=== PATIENT | female | born 1950 | race African-American/Black ===

== ENCOUNTER 2018-06-17 09:33 | Outpatient (CLI) | payer OTHER ==
[~2018-06-17 09:33] MED LIST: AMOX500T5 PO; CIPRO500 MG PO; CLARITHROMYC500 M1 PO; DILANTIN30 MG PO; KRISTALOSE10 GM PO; LISI20TA31 PO; OMEPRAZOLE20.6 MGDR PO; PERCOCET1 TA1 PO; ZOFRAN8 MG PO
== END 2018-06-17 22:31 | disposition home or self-care (01) ==
LOC: RAD 09:33 → EDSEX 09:33 → RAD 22:31
DX: Z13.820 Encounter for screening for osteoporosis (principal); Z78.0 Asymptomatic menopausal state

== ENCOUNTER 2019-02-13 15:32 | Inpatient (IN) | payer OTHER ==
[~2019-02-13] VITALS: Ht 160 cm; Wt 82.8 kg
[2019-02-13] VITALS (9 sets, daily range): BP systolic 105–120; BP diastolic 52–86; TEMP 97.9–98.4; Ht 160 cm; Wt 82.8 kg
[2019-02-13 16:27] LABS: PLATELET COUNT 231 K/uL (152-353)
[2019-02-13 16:45] LABS: PARTIAL THROMBOPLASTIN TIME 24.5 SECONDS (24.5-33.6)
[2019-02-13 16:52] LABS: POTASSIUM 4.7 mmol/L (3.6-5.2); SODIUM 127 mmol/L (136-145)
[2019-02-14] VITALS (24 sets, daily range): BP systolic 92–131; BP diastolic 56–88; TEMP 97.9–98.6
[2019-02-14 03:24] LABS: PARTIAL THROMBOPLASTIN TIME 27.3 SECONDS (24.5-33.6)
[2019-02-14] MEDS ORDERED: LISI20TA11 PO (05:16)
[2019-02-14] MEDS ORDERED: SPIRONOLACT25 MG PO (05:17)
[2019-02-14] MEDS ORDERED: BENZONATATE200 MG PO (05:18)
[2019-02-14] MEDS ORDERED: CLOP75TA2 PO (05:18)
[2019-02-14] MEDS ORDERED: HYDROCHLOROT12.5 M1 PO (05:20)
[2019-02-14] MEDS ORDERED: CEFD300C2 PO (05:21)
[2019-02-14] MEDS ORDERED: CODEINE/GUAIFEN1 SOL PO (05:24)
[2019-02-14 08:37] LABS: PLATELET COUNT 215 K/uL (152-353)
[2019-02-14 09:19] LABS: POTASSIUM 4.5 mmol/L (3.6-5.2); SODIUM 129 mmol/L (136-145)
== END 2019-02-14 23:10 | disposition short-term general hospital (02) | DRG 208 ==
LOC: ED 15:32 → MED/SURG 18:45 → ICU 22:15 → MED/SURG 22:15 → ICU 22:15
PROVIDERS: Family Medicine; ADMIT Hospitalist
PROC: 5A1935Z Respiratory Ventilation, Less than 24 Consecutive Hours (ICD-10-PCS; principal; 2019-02-14)
PROC: 0BH17EZ Insertion of Endotracheal Airway into Trachea, Via Natural or Artificial Opening (ICD-10-PCS; 2019-02-14)
DX: J18.8 Other pneumonia, unspecified organism (principal); I26.99 Other pulmonary embolism without acute cor pulmonale; J80 Acute respiratory distress syndrome; I13.0 Hypertensive heart and chronic kidney disease with heart failure and stage 1 through stage 4 chronic kidney disease, or unspecified chronic kidney disease; I50.1 Left ventricular failure, unspecified; R01.1 Cardiac murmur, unspecified; N18.3 Chronic kidney disease, stage 3 (moderate); D64.89 Other specified anemias; R73.9 Hyperglycemia, unspecified; E78.00 Pure hypercholesterolemia, unspecified; R10.2 Pelvic and perineal pain
CPT/HCPCS: 36415; 36600; 80053; 81000; 82150; 82550; 82805; 83036; 83605; 83690; 83880; 84484; 85027; 85379; 85610; 85730; 87040; 87077; 87086; 87088; 87186; 87899; 93005; 93306; 94640; 94664; 94760; 96365; 96366; 96375; 99220; 99284; G0378; J1644; J1650; J1885; J1940; J1956; J2270; J2930; J3490

== ENCOUNTER 2020-11-15 16:53 | Outpatient (CLI) | payer OTHER ==
[~2020-11-15 16:53] MED LIST changes: +BENZONATATE200 MG PO; +CEFD300C2 PO; +CLOP75TA2 PO; +CODEINE/GUAIFEN1 SOL PO; +HYDROCHLOROT12.5 M1 PO; +LISI20TA11 PO; +SPIRONOLACT25 MG PO
[2020-11-15 17:20] LABS: PLATELET COUNT 200 K/uL (152-353)
[2020-11-15 18:16] LABS: POTASSIUM 4.3 mmol/L (3.6-5.2)
== END 2020-11-15 23:50 | disposition home or self-care (01) ==
LOC: LABW 16:53
PROVIDERS: ATTEND Family Medicine
DX: R05 Cough (principal); I50.9 Heart failure, unspecified; I11.0 Hypertensive heart disease with heart failure; E07.89 Other specified disorders of thyroid
CPT/HCPCS: 36415; 80053; 84439; 84443; 85027

== ENCOUNTER 2020-11-21 10:40 | Outpatient (CLI) | payer OTHER | END 2020-11-21 23:03 | disposition home or self-care (01) | LOC: US 10:40 | PROVIDERS: ATTEND Family Medicine | DX: E07.89 Other specified disorders of thyroid (principal); R05 Cough; Z12.31 Encounter for screening mammogram for malignant neoplasm of breast ==

== ENCOUNTER 2022-05-12 21:09 | Emergency (ER) | payer OTHER ==
[~2022-05-12] VITALS: Ht 149.9 cm; Wt 77.1 kg
[2022-05-12 22:50] LABS: POTASSIUM 3.4 mmol/L (3.6-5.2)
[2022-05-12 22:51] LABS: PLATELET COUNT 192 K/uL (152-353)
[2022-05-13 01:15] VITALS: BP 106/62; TEMP 98.9
[2022-05-13] MEDS ORDERED: ASPIRIN 8181 MG PO (15:18)
[2022-05-13] MEDS ORDERED: LIPITOR40 MG PO (15:19)
[2022-05-13] MEDS ORDERED: ELIQUIS5 MG PO (15:19)
[2022-05-13] MEDS ORDERED: DQZATE100 MG PO (15:19)
[2022-05-13] MEDS ORDERED: NEURONTIN 100M100 MG PO (15:20)
[2022-05-13] MEDS ORDERED: METO50TA63 PO (15:20)
[2022-05-13] MEDS ORDERED: OXYC10TAB PO (15:21)
[2022-05-13] MEDS ORDERED: PANTOPRAZOLE 40MG TA PO (15:21)
== END 2022-05-13 01:15 | disposition home or self-care (01) ==
LOC: ED 21:09
PROVIDERS: Emergency Medicine Emergency Medical Services
DX: N30.00 Acute cystitis without hematuria (principal); N23 Unspecified renal colic
CPT/HCPCS: 36415; 80053; 81000; 82150; 83605; 83690; 83735; 85027; 87040; 96360; 96365; 96375; 96376; 99284; J0696; J1885; J2270; J2405; J3490; Q9963

== ENCOUNTER 2022-05-13 12:11 | Inpatient (IN) | payer OTHER ==
[~2022-05-13] VITALS: Ht 149.9 cm; Wt 81.0 kg
[2022-05-13 13:00] VITALS: BP 1248/58; TEMP 98.4; BMI 35.2
[2022-05-13 13:49] LABS: PLATELET COUNT 173 K/uL (152-353)
[2022-05-13] MEDS ORDERED: ASPIRIN 8181 MG PO (15:18)
[2022-05-13] MEDS ORDERED: DQZATE100 MG PO (15:19)
[2022-05-13] MEDS ORDERED: ELIQUIS5 MG PO (15:19)
[2022-05-13] MEDS ORDERED: LIPITOR40 MG PO (15:19)
[2022-05-13] MEDS ORDERED: NEURONTIN 100M100 MG PO (15:20)
[2022-05-13] MEDS ORDERED: METO50TA63 PO (15:20)
[2022-05-13] MEDS ORDERED: OXYC10TAB PO (15:21)
[2022-05-13] MEDS ORDERED: PANTOPRAZOLE 40MG TA PO (15:21)
[2022-05-13 16:00] VITALS: BP 116/60; TEMP 98.5
[2022-05-13 20:00] VITALS: BP 114/55; TEMP 98.6
[2022-05-14] VITALS (7 sets, daily range): BP systolic 108–152; BP diastolic 51–75; TEMP 97.8–99.3
[2022-05-14 10:02] LABS: PLATELET COUNT 146 K/uL (152-353)
[2022-05-14 10:14] LABS: POTASSIUM 3.5 mmol/L (3.6-5.2)
[2022-05-15] VITALS (7 sets, daily range): BP systolic 136–163; BP diastolic 46–84; TEMP 97.5–99.2; BMI 27.5
[2022-05-15 05:12] LABS: PLATELET COUNT 153 K/uL (152-353)
[2022-05-15 05:14] LABS: POTASSIUM 3.8 mmol/L (3.6-5.2)
[2022-05-16 03:29] VITALS: BP 132/71; TEMP 98.9
[2022-05-16 08:00] VITALS: BP 149/84; TEMP 98.9
[2022-05-16 12:00] VITALS: BP 161/77; TEMP 97.9
[2022-05-16 12:35] VITALS: BP 147/78
[2022-05-16 16:00] VITALS: BP 168/80; TEMP 99.1
== END 2022-05-16 17:40 | disposition home or self-care (01) | DRG 389 ==
LOC: MED/SURG 12:11
PROVIDERS: ADMIT Family Medicine; ATTEND Family Medicine
DX: K56.690 Other partial intestinal obstruction (principal); J98.11 Atelectasis; N39.0 Urinary tract infection, site not specified; N17.8 Other acute kidney failure; R50.9 Fever, unspecified; D64.89 Other specified anemias; I25.10 Atherosclerotic heart disease of native coronary artery without angina pectoris; I11.0 Hypertensive heart disease with heart failure; I50.9 Heart failure, unspecified; M15.8 Other polyosteoarthritis; E86.0 Dehydration; K59.09 Other constipation; B37.31 Acute candidiasis of vulva and vagina; I10 Essential (primary) hypertension; R31.29 Other microscopic hematuria; E87.6 Hypokalemia; R10.9 Unspecified abdominal pain
CPT/HCPCS: 36415; 80053; 81000; 82150; 82550; 83605; 83690; 84484; 85027; 87040; 87088; 87635; 93005; 96361; 96365; 96366; 96367; 96368; 96375; 96376; J0696; J1940; J1956; J2270; J2405; J3490; U0003

== ENCOUNTER 2023-02-17 08:20 | Outpatient (CLI) | payer OTHER ==
[~2023-02-17 08:20] MED LIST changes: +ASPIRIN 8181 MG PO; +DQZATE100 MG PO; +ELIQUIS5 MG PO; +LIPITOR40 MG PO; +METO50TA63 PO; +NEURONTIN 100M100 MG PO; +OXYC10TAB PO; +PANTOPRAZOLE 40MG TA PO
== END 2023-02-17 22:01 | disposition home or self-care (01) ==
LOC: RAD 08:20
PROVIDERS: ATTEND Family Medicine
DX: M25.551 Pain in right hip (principal); M54.2 Cervicalgia; M54.59 Other low back pain; M25.561 Pain in right knee